=== PATIENT | female | born 1935 | race American Indian/Alaskan Native ===

== ENCOUNTER 2017-08-19 18:07 | Emergency (ER) | payer MEDICARE ==
[2017-08-19 19:11] LABS: Bilirubin,Urine NEG (Negative); Blood,Urine NEG (Negative); Color,Urine Yellow (Yellow); Mucus,Urine FEW /HPF; Nitrite,Urine NEG (Negative)
[2017-08-19 19:25] LABS: Amphetamine Screen,Urine PRESUMPTIVE NEGATIVE; Benzodiazepines Screen,Urine PRESUMPTIVE NEGATIVE; Cannabinoid Screen,Urine PRESUMPTIVE NEGATIVE; Cocaine Screen,Urine PRESUMPTIVE NEGATIVE; Methadone Screen,Urine PRESUMPTIVE NEGATIVE; Opiate Screen,Urine PRESUMPTIVE NEGATIVE
[2017-08-19 20:05] LABS: Basophils % (Auto) 0.2 % (0.0-1.8); Eosinophils # (Auto) 0.1 K/mm3 (0.0-0.4); Eosinophils % (Auto) 0.6 % (0.0-4.3); Hematocrit 33.5 % (30.3-42.9); Mean Corpuscular HGB Conc 33 % (30-34); Mean Corpuscular Hemoglobin 28 pg (28-32); Mean Corpuscular Volume 84 fl (79-97); Monocytes # (Auto) 0.7 K/mm3 (0.0-0.8); Monocytes % (Auto) 6.1 % (0.0-7.3); Platelet Count 299 K/mm3 (140-440); Red Blood Count 3.98 M/mm3 (3.65-5.03); Red Cell Distribution Width 13.5 % (13.2-15.2)
[2017-08-19 20:16] LABS: BUN/Creatinine Ratio 28; Blood Urea Nitrogen 14 mg/dL (7-17); Calcium 8.6 mg/dL (8.4-10.2); Hemolysis Index 4
--- NOTE | 2017-08-19 21:14 | Emergency Department Report ---
ED Psych HPI - General Chief Complaint: Medical Clearance Stated Complaint: COLD/WET/HOMELESS Time Seen by Provider: 08/19/17 19:05 Source: patient Mode of arrival: Ambulatory - History of Present Illness Initial Comments: This is an 82-year-old female with pressured speech who comes to the emergency room because she wants a place to stay. She states that she took a bus from [place] because her doctor there told her that there was a lot of fluid in the city and she couldn't tolerate that and would need to leave. So she got on a [employer] bus and came to [place] stating that she knows somebody in [place] but she would never go stay with them and [facility] [place] but does not want to go back there. She is oriented to person place and year. When I was trying to get the history from her she would have numerous tangential thoughts. She states that she's been coughing as well. She admits to having lymphedema. 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 She does not smoke drink or abuse illicit drugs. She admits that she is homeless for "58 months". She denies any kind of suicidal or homicidal ideation. -: Gradual Associated Psychiatric Symptoms: depression, delusions History of same: Yes Quality: constant Improves With: none Worsens With: none Associated Symptoms: denies other symptoms Treatments Prior to Arrival: none - Related Data Home Medications Medication Instructions Recorded Confirmed Last Taken No Known Home Medications [No 08/19/17 08/19/17 Unknown Reported Home Medications] Allergies Allergy/AdvReac Type Severity Reaction Status Date / Time Sulfa (Sulfonamide AdvReac Vomiting Verified 08/19/17 18:28 Antibiotics) ED Review of Systems ROS: Stated complaint: COLD/WET/HOMELESS Other details as noted in HPI Comment: All other systems reviewed and negative Constitutional: no symptoms reported Eyes: as per HPI ENT: as per HPI Respiratory: cough Cardiovascular: as per HPI. denies: chest pain, palpitations Endocrine: no symptoms reported Gastrointestinal: as per HPI. denies: abdominal pain, nausea, vomiting Genitourinary: as per HPI. denies: urgency, dysuria Musculoskeletal: as per HPI Skin: as per HPI Neurological: as per HPI Psychiatric: as per HPI Hematological/Lymphatic: as per HPI ED Past Medical Hx - Past Medical History Previous Medical History?: Yes Additional medical history: murmer, anxiety - Surgical History Past Surgical History?: Yes Additional Surgical History: tonsils - Social History Smoking Status: Never Smoker Substance Use Type: None - Medications Home Medications: Home Medications Medication Instructions Recorded Confirmed Last Taken Type No Known Home Medications [No 08/19/17 08/19/17 Unknown History Reported Home Medications] ED Physical Exam - General Limitations: No Limitations, Other (she is alert and oriented to person place and year. She speaks constantly and relays a very complex story about her life with significant tangential thoughts.) General appearance: alert, in no apparent distress - Head Head exam: Present: atraumatic - Eye Eye exam: Present: normal appearance, PERRL, EOMI - ENT ENT exam: Present: normal exam - Neck Neck exam: Present: normal inspection - Respiratory Respiratory exam: Present: normal lung sounds bilaterally - Cardiovascular Cardiovascular Exam: Present: regular rate, normal heart sounds - GI/Abdominal GI/Abdominal exam: Present: soft, normal bowel sounds - Rectal Rectal exam: Present: deferred - Extremities Exam Extremities exam: Present: pedal edema, other (lymphedema is noted in the lower extremities bilaterally. This is a chronic finding for the patient.) - Back Exam Back exam: Present: normal inspection - Neurological Exam Neurological exam: Present: alert, oriented X3, CN II-XII intact - Psychiatric Psychiatric exam: Present: normal affect, normal mood, other (tangential thought processes) - Skin Skin exam: Present: warm, dry, intact ED Course Vital Signs 08/19/17 08/19/17 18:22 20:13 Temperature 98.1 F Pulse Rate 85 Respiratory 16 20 Rate Blood Pressure 132/78 O2 Sat by Pulse 98 98 Oximetry - Reevaluation(s) Reevaluation #1: 08/19/17 21:15 This time I feel the patient will need a mental health evaluation. ED Medical Decision Making - Lab Data Result diagrams: 08/19/17 19:51 08/19/17 19:51 Critical care attestation.: If time is entered above; I have spent that time in minutes in the direct care of this critically ill patient, excluding procedure time. ED Disposition Condition: Stable
[2017-08-20] MEDS: KEFLEX PO SCH ×2 (14:29→18:38)
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
[2017-08-20] MEDS ORDERED: ZOLOFT PO SCH (17:00)
[2017-08-20] MEDS ORDERED: ABILIFY PO SCH (17:00)
[2017-08-21] MEDS: KEFLEX PO SCH ×2 (00:01→08:59)
[2017-08-21 08:55] VITALS: BP 101/55
--- NOTE | 2017-08-21 10:22 | Progress Note ---
Subjective - Reason for Consult Consult date: 08/21/17 Reason for consult: Psychiatry Follow-up - Chief Complaint Chief complaint: "I am leaving today" This is an 82-year-old female with pressured speech who comes to the emergency room because she wants a place to stay. Today the patient is calm and cooperative during the assessment. She stated that she will be leaving the hospital for a fpc. She denies SI/HI's and AVH's. She denies any side effects of her medications. Mental Status Exam - Vital signs Last Vital Signs Temp 97.6 F 08/21/17 08:54 Pulse 82 08/21/17 08:54 Resp 18 08/21/17 08:54 BP 101/55 08/21/17 08:54 Pulse Ox 95 08/21/17 08:54 - Exam Narrative exam: MSE: Appearance: calm, cooperative Behavior: regular eye contact Speech: regular rate and tone Mood: "okay" Affect: congruent to mood Thought Process: circumstantial Thought Content: denies SI/HI's and AVH's Motor Activity: lying in bed Cognition: A/O x 3 Insight: fair Judgment: fair Assessment and Plan Impression: Hx of depression. Unspecified Mood DO. Today the patient is calm and cooperative during the assessment. Patient has redness/rash on her LE's bilaterally. Recommendation/Plan: Continue Zoloft 50 mg PO daily for depression and Abilify 5 mg PO for mood/adj tx for depression. Discussed possible metabolic side effects of Abilify with patient. Discussed possible suicidality/medication induced billy with patient reference Abilify. Hypnotherapist informed, patient will need placement. Patient given outpatient psy services for [facility].
== END 2017-08-21 10:22 | disposition home or self-care (01) ==
LOC: ED 18:07 → EEVIPCON 18:07 → ED 08-21 10:22
DX: F32.9 Major depressive disorder, single episode, unspecified (principal); F41.9 Anxiety disorder, unspecified; F22 Delusional disorders; Z88.2 Allergy status to sulfonamides; Z79.899 Other long term (current) drug therapy
CPT/HCPCS: 36415; 80048; 80307; 81001; 85025; 99284; G0480; 80320